=== PATIENT | male | born 1975 | race Two or more races ===

== ENCOUNTER 2021-11-20 06:18 | Emergency (ER) | payer OTHER ==
[2021-11-20 11:24] VITALS: BP 116/80
[2021-11-20] MEDS ORDERED: IBU600T PO (13:00)
== END 2021-11-20 13:26 | disposition home or self-care (01) ==
LOC: ER 06:18
DX: S02.602A Fracture of unspecified part of body of left mandible, initial encounter for closed fracture (principal); M79.10 Myalgia, unspecified site; Y04.2XXA Assault by strike against or bumped into by another person, initial encounter; Y93.89 Activity, other specified; Y92.89 Other specified places as the place of occurrence of the external cause; Y99.8 Other external cause status
CPT/HCPCS: 70486